=== PATIENT | female | born 1985 | race Caucasian/White ===

== ENCOUNTER 2016-12-26 17:10 | Emergency (ER) | payer OTHER ==
[2016-12-26 17:11] VITALS: BMI 34.8
--- NOTE | 2016-12-26 18:31 | C.PDOC ---
History Of Present Illness 31 y/o female presents to ED for evaluation of lump under left armpit developed 1 month ago. Patient states lump is painful and is worsen when moving arm. Patient denies bleeding, drainage, fever, chills, or any other complaints at this time. Time Seen by Provider: 12/26/16 17:31 Chief Complaint (Nursing): Abnormal Skin Integrity History Per: Patient History/Exam Limitations: no limitations Onset/Duration Of Symptoms: Days Current Symptoms Are (Timing): Still Present Past Medical History Reviewed: Historical Data, Nursing Documentation, Vital Signs Vital Signs: Last Vital Signs Temp 98.4 F 12/26/16 18:59 Pulse 82 12/26/16 18:59 Resp 18 12/26/16 18:59 BP 110/72 12/26/16 18:59 Pulse Ox 98 12/26/16 18:59 Surgical History: Tonsillectomy - [facility] Procedures INSPECTION OF LARYNX, ENDO (11/21/15) Family History: States: No Known Family Hx - Social History Hx Tobacco Use: Yes Hx Alcohol Use: No Hx Substance Use: No - Immunization History Hx Tetanus Toxoid Vaccination: Yes Hx Influenza Vaccination: Yes Hx Pneumococcal Vaccination: No Review Of Systems Except As Marked, All Systems Reviewed And Found Negative. Constitutional: Negative for: Fever, Chills Respiratory: Negative for: Shortness of Breath Skin: Negative for: Rash Neurological: Negative for: Weakness, Numbness Physical Exam - Physical Exam Appears: Non-toxic, No Acute Distress Skin: Warm, Dry, No Rash, Other (1cm area of swelling to the left axilla. No erythema or fluctuance) Head: Atraumatic, Normacephalic Eye(s): bilateral: Normal Inspection, PERRL, EOMI Oral Mucosa: Moist Extremity: Normal ROM, No Tenderness, Capillary Refill (<2 seconds), No Swelling Neurological/Psych: Oriented x3, Normal Speech, Normal Cognition Gait: Steady ED Course And Treatment O2 Sat by Pulse Oximetry: 97 (RA) Pulse Ox Interpretation: Normal Medical Decision Making Medical Decision Making: Physical exam is suggestive of possible early abscess. Patient was instructed to apply warm compresses and return in 2 days for possible I& D. Disposition - Disposition Referrals: Miguel Sewell MD [Staff Provider] - Disposition: HOME/ ROUTINE Disposition Time: 18:15 Condition: GOOD Additional Instructions: APPLY WARM COMPRESSES TO THE REGION OVER THE NEXT SEVERAL DAYS. RETURN IN 2 DAYS FOR WOUND CHECK. Prescriptions: Doxycycline Hyclate 100 mg PO BID #14 cap Instructions: Abscess (GEN) Forms: [facility] (Ecuadorean) - Clinical Impression Clinical Impression: Abscess - PA / PETROLEUM ENGINEER / Resident Statement MD/DO has reviewed & agrees with the documentation as recorded. - Scribe Statement The provider has reviewed the documentation as recorded by the Robertoibdeborah Turpin All medical record entries made by the Robertoibdeborah were at my direction and personally dictated by me. I have reviewed the chart and agree that the record accurately reflects my personal performance of the history, physical exam, medical decision making, and the department course for this patient. I have also personally directed, reviewed, and agree with the discharge instructions and disposition.
--- NOTE | 2016-12-26 18:43 | C.PDOC ---
Time Seen by Provider: 12/26/16 17:31 Chief Complaint (Nursing): Abnormal Skin Integrity Past Medical History Vital Signs: Last Vital Signs Temp 98.5 F 12/26/16 17:12 Pulse 81 12/26/16 17:12 Resp 20 12/26/16 17:12 BP 104/70 12/26/16 17:12 Pulse Ox 97 12/26/16 17:12 Surgical History: Tonsillectomy - [facility] Procedures INSPECTION OF LARYNX, ENDO (11/21/15) Family History: States: Unknown Family Hx - Social History Hx Tobacco Use: Yes Hx Alcohol Use: No Hx Substance Use: No - Immunization History Hx Tetanus Toxoid Vaccination: Yes Hx Influenza Vaccination: Yes Hx Pneumococcal Vaccination: No ED Course And Treatment - Laboratory Results Urine POC: Negative O2 Sat by Pulse Oximetry: 97 Disposition - Disposition Referrals: Miguel Sewell MD [Staff Provider] - Disposition: HOME/ ROUTINE Disposition Time: 18:44 Condition: GOOD Additional Instructions: APPLY WARM COMPRESSES TO THE REGION OVER THE NEXT SEVERAL DAYS. RETURN IN 2 DAYS FOR WOUND CHECK. Prescriptions: Doxycycline Hyclate 100 mg PO BID #14 cap Instructions: Abscess (GEN) Forms: [facility] (S[place] Arabian) - Clinical Impression Clinical Impression: Abscess
[2016-12-26 19:01] VITALS: BP 110/72; PULSE 82; RESP 18; TEMP 98.4
[2016-12-27 21:17] VITALS: O2SAT 97
== END 2016-12-26 19:02 | disposition home or self-care (01) ==
LOC: C.ER 17:10
DX: L02.412 Cutaneous abscess of left axilla (principal)

== ENCOUNTER 2017-05-28 07:11 | Emergency (ER) | payer OTHER ==
[2017-05-28 07:12] VITALS: BMI 34.8
[2017-05-28 07:45] VITALS: BP 112/82; PULSE 91; RESP 20; TEMP 98.2; O2SAT 98
--- NOTE | 2017-05-28 08:11 | C.PDOC ---
History Of Present Illness 32-year-old female, PMHx includes Hypercholesterolemia, presents to the emergency department with complaints of non-traumatic left upper back pain for the past three days. Patient states she has been using Bengay at home with minimal relief. She denies cough, fever, abdominal pain, nausea/vomiting, neck pain, headache, dizziness, SOB. Time Seen by Provider: 05/28/17 07:41 Chief Complaint (Nursing): Back Pain History Per: Patient History/Exam Limitations: no limitations Onset/Duration Of Symptoms: Days Current Symptoms Are (Timing): Still Present Quality Of Discomfort: "Pain" Severity: Mild Exacerbating Factor(s): Movement Past Medical History Reviewed: Historical Data, Nursing Documentation, Vital Signs Vital Signs: Last Vital Signs Temp 98.2 F 05/28/17 07:42 Pulse 91 H 05/28/17 07:42 Resp 20 05/28/17 07:42 BP 112/82 05/28/17 07:42 Pulse Ox 98 05/28/17 08:13 - Medical History PMH: Hypercholesterolemia Surgical History: Tonsillectomy - [facility] Procedures INSPECTION OF LARYNX, ENDO (11/21/15) Family History: States: No Known Family Hx - Social History Hx Tobacco Use: Yes Hx Alcohol Use: No Hx Substance Use: No - Immunization History Hx Tetanus Toxoid Vaccination: No Hx Influenza Vaccination: Yes Hx Pneumococcal Vaccination: No Review Of Systems Except As Marked, All Systems Reviewed And Found Negative. Constitutional: Negative for: Fever Cardiovascular: Negative for: Chest Pain, Palpitations Respiratory: Negative for: Cough, Shortness of Breath Gastrointestinal: Negative for: Nausea, Vomiting, Abdominal Pain, Diarrhea Musculoskeletal: Positive for: Back Pain Skin: Negative for: Rash Neurological: Negative for: Weakness, Headache, Dizziness Physical Exam - Physical Exam Appears: Well, Non-toxic, No Acute Distress Skin: Normal Color, Warm, Dry, No Rash Head: Normacephalic Eye(s): bilateral: Normal Inspection Oral Mucosa: Moist Neck: Normal, Normal ROM Cardiovascular: Rhythm Regular Respiratory: Normal Breath Sounds, No Rales, No Rhonchi, No Wheezing Back: Muscle Spasm (Left scapular area (+) palpable muscle spasm) Extremity: Normal ROM Neurological/Psych: Oriented x3 ED Course And Treatment O2 Sat by Pulse Oximetry: 98 (on RA) Pulse Ox Interpretation: Normal Progress Note: Patient given PO Tylenol and Flexeril in ED. On reassessment, patient's pain has improved and she states she feels better. Rxs for flexeril & tylenol given; patient instructed to follow up with PMD/clinic in 1-2 days. She understands she should return to ED if symptoms worsen. Reevaluation Time: 08:40 Reassessment Condition: Improved Disposition Counseled Patient/Family Regarding: Diagnosis, Need For Followup, Rx Given - Disposition Referrals: Manda Pascal MD [Staff Provider] - Disposition: HOME/ ROUTINE Disposition Time: 08:40 Condition: STABLE Additional Instructions: FOLLOW UP WITH YOUR DOCTOR IN 1-2 DAYS USE MEDICATION NEEDED RETURN TO ER IF SYMPTOMS WORSEN Prescriptions: Acetaminophen [Tylenol 325mg tab] 650 mg PO Q6 PRN #30 tab PRN Reason: pain/fever Cyclobenzaprine [Flexeril] 10 mg PO BID PRN #20 tab PRN Reason: Muscle Spasm Instructions: Muscle Spasm (ED) Forms: [facility] (Latvian), Work Excuse Print Language: KHMER - POA Present On Arrival: None - Clinical Impression Clinical Impression: Muscle spasm of back - Scribe Statement The provider has reviewed the documentation as recorded by the Scribe (Harry Gloria) All medical record entries made by the Scribe were at my direction and personally dictated by me. I have reviewed the chart and agree that the record accurately reflects my personal performance of the history, physical exam, medical decision making, and the department course for this patient. I have also personally directed, reviewed, and agree with the discharge instructions and disposition.
== END 2017-05-28 08:48 | disposition home or self-care (01) ==
LOC: C.ER 07:11
DX: M62.830 Muscle spasm of back (principal); E78.00 Pure hypercholesterolemia, unspecified; Z87.891 Personal history of nicotine dependence